=== PATIENT | female | born 1965 | race Caucasian/White ===

== ENCOUNTER 2021-11-24 05:36 | Emergency (ER) | payer MEDICAID, SELFPAY ==
[2021-11-24 05:54] VITALS: BMI 24.2
--- NOTE | 2021-11-24 05:55 | CT_ITS ---
FINAL REPORT TECHNIQUE: Thin section axial images were obtained through the abdomen after intravenous contrast. Reconstruction images were obtained from the axial data. Exam was performed using dose reduction techniques. This study was performed with techniques to keep radiation doses as low as reasonably achievable (ALARA). Individualized dose reduction techniques using automated exposure control or adjustment of mA and/or kV according to the patient's size were employed. CLINICAL HISTORY: abd pain, n/v FINDINGS: The lung bases are clear. There is mild fatty infiltration of the liver. The gallbladder is present. There is subtle abnormal attenuation surrounding the body of the pancreas, mild pancreatitis is not excluded. The adrenals and pancreas are unremarkable. There is a nonobstructing left renal stone. No obstructing renal or ureteral stone is identified. There is no small bowel obstruction. There is no abdominal lymphadenopathy or ascites. The patient is status post hysterectomy. The pelvic portions of the GI tract, including the appendix, are without acute abnormality. There is no pelvic lymphadenopathy or ascites. No acute osseous abnormalities identified. IMPRESSION: Fatty liver. Possible mild pancreatitis. Recommend correlation with pancreatic laboratory studies. Nonobstructing left renal stone. Reviewed, Interpreted and Dictated by Maria Fernanda Buckley MD Transcribed by Kitty Lyons Authenticated and [facility]
[2021-11-24 06:03] VITALS: BP 113/61; PULSE 89; RESP 18; TEMP 36.9; O2SAT 100; BMI 22.7
[2021-11-24 06:08] LABS: Microscopic, Urine URINE MICROSCOPIC (MICROSCOPIC)
[2021-11-24 06:09] LABS: Appearance,Urine CLEAR (Clear); Bilirubin,Urine Negative (Negative); Blood, Urine 3+ (Negative); Color,Urine YELLOW (Yellow); Glucose,Urine (UA) TRACE (Negative); Ketones,Urine Negative (Negative); Leukocyte Esterase,Urine TRACE (Negative); Nitrate,Urine Negative (Negative); Protein,Urine Negative (Negative); Urobilinogen,Urine 0.2 EU/dl (0.2)
[2021-11-24 06:10] VITALS: PULSE 78; RESP 16; TEMP 36.8
--- NOTE | 2021-11-24 06:12 | HMH.EDNVD ---
ED Disposition Clinical Impression: GERD (gastroesophageal reflux disease) Qualifiers: Esophagitis presence: esophagitis presence not specified Qualified Code(s): K21.9 - Gastro-esophageal reflux disease without esophagitis Disposition: Home, Self-Care Condition on Discharge: Good Instructions: DI for Gastroesophageal Reflux Disease (GERD) Additional Instructions: call pcp for follow up and adjust meds Prescriptions: Sucralfate [Carafate 1gm/10mL Susp] 10 ml PO ACHS 10 Days #400 ml Transmission Status: Pending to [facility] Referrals: Molly Mason APRN [Primary Care Provider] - - Critical Care Critical Care Time: No Attestation: On , the high probability of a clinically significant, sudden or life threatening deterioration of the following system(s) required my full and direct attention, intervention and personal management. The time I documented below is in addition to time spent performing reported procedures but includes the following listed in this critical care notation. Medical Decision Making - Medical Records Medical records reviewed: Yes: I reviewed the patient's medical records. - Brian Inquiry Pt receiving controlled substance: No Vital Signs: 11/24/21 06:03 11/24/21 06:10 11/24/21 06:59 Temperature 98.5 F 98.3 F Temperature Source Oral Pulse Rate 78 70 Pulse Rate [Left] 89 Respiratory Rate 18 16 16 Blood Pressure 103/60 L Blood Pressure [Right Arm] 113/61 Blood Pressure Mean [Right Arm] 78 Blood Pressure Source [Right Arm] Manual Cuff/ Auscultation 02 Sat by Pulse Oximetry 100 96 Oxygen Delivery Method Room Air Room Air - Lab Data Lab results reviewed: Yes: I reviewed the patient's lab results. Lab Results 11/24/21 05:54: Urine Color Yellow, Urine Appearance Clear, Urine pH 6.0, Ur Specific [place] 1.020, Urine Protein Negative, Urine Glucose (UA) Trace, Urine Ketones Negative, Urine Blood 3+, Urine Nitrate Negative, Urine Bilirubin Negative, Urine Urobilinogen 0.2, Ur Leukocyte Esterase Trace, Urine RBC 5-10, Urine WBC 3-5, Ur Squamous Epith Cells Occasional, Calcium Oxalate Crystal 1+, Urine Bacteria Trace 11/24/21 05:55: WBC 6.7, RBC 4.65, Hgb 13.6, Hct 38.5, MCV 82.8, MCH 29.1, MCHC 35.2, RDW 14.0, Plt Count 152, MPV 10.3, Neut % (Auto) 62.4, Lymph % (Auto) 29.7, [place] % (Auto) 6.5, Eos % (Auto) 1.2, Baso % (Auto) 0.3, Neut # (Auto) 4.2, Lymph # (Auto) 2.0, [place] # (Auto) 0.4, Eos # (Auto) 0.1, Baso # (Auto) 0.0 11/24/21 05:55: Sodium 138, Potassium 3.4 L, Chloride 102, Carbon Dioxide 28, Anion Gap 11.4, BUN 15, Creatinine 0.70, Estimated Creat Clear 93, Estimated GFR 87, Est GFR ( Amer) 106, Glucose 209 H, Calcium 9.6, Total Bilirubin < 0.1 L, AST 31, ALT 26, Alkaline Phosphatase 101, Troponin I < 0.01, Total Protein 7.4, Albumin 4.2, Globulin 3.2, Albumin/Globulin Ratio 1.3, Amylase 68, Lipase 225, Acetone Level None detected Result diagrams: 11/24/21 05:55 11/24/21 05:55 Orders (Tests/Meds): ED MEDICATIONS Generic Name Dose Route Start Last Admin Trade Name Freq PRN Reason Stop Dose Admin Sodium Chloride 8 ml 11/24/21 05:55 Sodium Chloride 0.9% 10ml Vial IV 12/24/21 05:54 NEEDED PRN dilute pepcid Discontinued Medications Generic Name Dose Route Start Last Admin Trade Name Freq PRN Reason Stop Dose Admin Famotidine 20 mg 11/24/21 05:55 11/24/21 06:19 Famotidine 20mg/2ml Vial IV 11/24/21 05:56 20 mg ONCE ONE Administration Sodium Chloride 1,000 mls @ 999 mls/hr 11/24/21 06:00 11/24/21 06:19 Sod Chlor 0.9% 1000ml Bag IV 11/24/21 07:00 999 mls/hr .Q1H1M AJ Administration Iopamidol 75 ml 11/24/21 06:59 11/24/21 07:00 Iopamidol-370 (76%);100ml Bottle IV 11/24/21 07:00 75 ml ONCE ONE Administration Metoclopramide HCl 10 mg 11/24/21 05:55 11/24/21 06:19 Metoclopramide Hcl 10mg/2ml Vial IVP 11/24/21 05:56 10 mg ONCE ONE Administration Ondansetron HCl 4 mg 11/24/21
[2021-11-24 06:16] LABS: Basophils % 0.3 % (0.1-2.0); Eosinophils # 0.1 K/mm3 (0.0-0.4); Eosinophils % 1.2 % (0.1-12.0); Hematocrit 38.5 % (37.0-47.0); Hemoglobin 13.6 g/dL (12.2-16.2); Lymphocytes % 29.7 % (10-50); Mean Corpuscular HGB Conc 35.2 g/dL (31.8-35.4); Mean Corpuscular Hemoglobin 29.1 pg (27.0-31.2); Mean Corpuscular Volume 82.8 fl (81-99); Mean Platelet Volume 10.3 fl (7.4-10.4); Monocytes # 0.4 K/mm3 (0.1-1.0); Monocytes % 6.5 % (1.7-9.3); Neutrophils # 4.2 K/mm3 (1.8-7.8); Neutrophils % 62.4 % (37.0-80.0); Platelet Count 152 K/mm3 (142-424); Red Blood Count 4.65 M/mm3 (4.20-5.40); White Blood Count 6.7 K/mm3 (4.8-10.8)
[2021-11-24 06:22] LABS: Alanine Aminotransferase 26 U/L (12-78); Albumin Level 4.2 g/dl (3.5-5.0); Albumin/Globulin Ratio 1.3 (1.1-1.8); Alkaline Phosphatase 101 U/L (38-126); Amylase 68 U/L (30-110); Anion Gap 11.4 mEq/L (5-15); Aspartate Amino Transferase 31 U/L (14-36); Blood Urea Nitrogen 15 mg/dl (7-17); Calcium 9.6 mg/dl (8.4-10.2); Carbon Dioxide 28 mmol/L (22.0-30.0); Chloride 102 mmol/L (98-107); Creatinine Clearance Estimated 93 mL/min (50-200); Estimated Glomerular Filt Rate 87 ml/min (>60); GFR (African American) 106 ML/MIN (>60); Globulin 3.2 g/dL (1.3-3.2); Glucose 209 mg/dl (74-100); Lipase 225 U/L (23-300); Potassium 3.4 mmoL/L (3.5-5.1); Sodium 138 mmol/L (136-145); Total Protein,Serum 7.4 g/dl (6.3-8.2)
[2021-11-24 06:31] LABS: Bilirubin,Total < 0.1 mg/dl (0.2-1.3)
[2021-11-24 06:44] LABS: Troponin I < 0.01 ng/ml (0.00-0.034)
[2021-11-24 06:58] LABS: Bacteria,Urine Trace /lpf; Calcium Oxalate Crystals,Urine 1+ /lpf; Squamous Epithelial Cell,Urine Occasional #/hpf (0-5)
[2021-11-24 06:59] VITALS: BP 103/60; PULSE 70; RESP 16; O2SAT 96
--- NOTE | 2021-11-24 07:00 | PC.NURSE ---
pt back from ct
[2021-11-24 07:02] VITALS: BP 103/58; PULSE 69; O2SAT 98
--- NOTE | 2021-11-24 07:18 | PC.NURSE ---
received report from mabel
--- NOTE | 2021-11-24 07:22 | PC.NURSE ---
pt and SO updated on plan of care
[2021-11-24 07:32] LABS: Acetone, Serum (Rapid) None Detected (None Detect)
[2021-11-24 07:39] VITALS: BP 81/43; PULSE 88; O2SAT 96
--- NOTE | 2021-11-24 07:53 | PC.NURSE ---
in to speak with pt about results. pt to receive the rest of fluids and to be d/c.
--- NOTE | 2021-11-24 08:09 | PC.NURSE ---
pt receiving iv bolus ns infusing with no complications
[2021-11-24 08:27] VITALS: BP 112/72; PULSE 78; RESP 16; TEMP 36.6; O2SAT 98
== END 2021-11-24 08:28 | disposition home or self-care (01) ==
PROVIDERS: Emergency Provider Emergency Medicine; PCP Nurse Practitioner Family
DX: K21.9 Gastro-esophageal reflux disease without esophagitis (principal)
CPT/HCPCS: 74177; 80053; 81001; 82009; 82150; 83690; 84484; 85025; 96365; 96366; 96375; 96376; 99284; J2405; Q9967

== ENCOUNTER → 2021-11-30 08:08 | Outpatient (CLI) | payer MEDICAID, SELFPAY ==
--- NOTE | 2021-11-30 08:16 | US_ITS ---
FINAL REPORT CLINICAL HISTORY: .bloating-- hx of uterus removed FINDINGS: Transvaginal and transabdominal sonographic images of the pelvis were obtained. The uterus is absent. Neither ovary is identified. Bowel is noted. IMPRESSION: Uterus and ovaries not identified. Reviewed, Interpreted and Dictated by Bonilla Knox III, MD Transcribed by Rahul Fernandes Authenticated and [facility]
--- NOTE | 2021-11-30 08:16 | US_ITS ---
FINAL REPORT CLINICAL HISTORY: EPIGASTRIC PAIN FINDINGS: Sonographic images of the abdomen were obtained. The liver has an unremarkable appearance with normal echogenicity. The gallbladder has an unremarkable appearance without evidence of gallstones. There is no evidence of biliary ductal dilatation. The common hepatic duct measures 5 mm, which is within normal limits. Limited images of the pancreas are unremarkable. The spleen size is normal. The right kidney measures 12.5 cm in length. The left kidney measures 11.0 cm in length. There is normal renal echogenicity. There is no evidence of hydronephrosis. The aorta has an unremarkable appearance. Limited images of the inferior vena cava are unremarkable. IMPRESSION: Unremarkable abdominal ultrasound with no acute abnormality identified. Reviewed, Interpreted and Dictated by Bonilla Knox III, MD Transcribed by Rahul Fernandes Authenticated and [facility]
== END ==
PROVIDERS: PCP Nurse Practitioner Family; Visit Provider Nurse Practitioner Family
DX: R10.13 Epigastric pain (principal)
CPT/HCPCS: 76700; 76830

== ENCOUNTER → 2021-12-23 09:59 | Outpatient (CLI) | payer MEDICAID, SELFPAY ==
--- NOTE | 2021-12-23 10:05 | NM_ITS ---
FINAL REPORT TECHNIQUE: The patient was injected with 8.56 mCi of technetium 99m Choletec and the patient ingested Ensure. Images of the abdomen were obtained for one hour. CLINICAL HISTORY: EPIGASTRIC PAIN 10:15AM 8.56 MCI TC CHOLETEC ENSURE FINDINGS: Hepatic uptake is normal. There is gallbladder and small bowel activity at 30 minutes. Ejection fraction after Ensure was calculated as 78%. IMPRESSION: Normal hepatobiliary scan. Normal ejection fraction. Reviewed, Interpreted and Dictated by Maria Fernanda Buckley MD Transcribed by Chelsi Monahan Authenticated and [facility]
--- NOTE | 2021-12-23 10:16 | HMH.ITSHM ---
Current Home Medications as stated by this patient Quynh Peña or labor representative. []SUCRALFATE
== END ==
PROVIDERS: PCP Nurse Practitioner Family; Visit Provider Nurse Practitioner Family
DX: R10.13 Epigastric pain (principal)
CPT/HCPCS: 78226; A9537

== ENCOUNTER 2022-02-23 18:04 | Emergency (ER) | payer MEDICAID, SELFPAY ==
[2022-02-23 18:05] VITALS: BP 130/83; PULSE 85; RESP 18; TEMP 37.1; O2SAT 97; BMI 24.7
--- NOTE | 2022-02-23 18:19 | HMH.EDGENADL ---
Discharge Plan Disposition Patient Disposition: Home, Self-Care Condition: Fair Prescriptions Prescriptions: New ondansetron 4 mg tablet,disintegrating 4 mg PO Q6H PRN (Reason: nausea and vomiting) Qty: 10 0RF tamsulosin [Flomax] 0.4 mg capsule 0.4 mg PO DAILY Qty: 5 0RF ibuprofen 600 mg tablet 600 mg PO Q8H PRN (Reason: pain) Qty: 14 0RF No Action sucralfate 1 GM/10 ML suspension 10 ml PO ACHS 10 Days Qty: 400 0RF Referrals Follow up/Referrals: Molly Mason APRN [Primary Care Provider] - See instructions Activity Restrictions/Add. Instructions Additional Instructions/Restrictions: You have been evaluated for flank pain. Work-up today indicates that you recently passed a kidney stone. Please continue antibiotics as prescribed by your primary care doctor. We sent a urine culture today, please follow-up for antibiotic modification. Take ibuprofen for pain. Zofran for nausea. Follow-up with your primary care doctor in 1 to 2 days for symptom recheck. Return to the emergency department at once for any new or worsening symptoms, pain, fever, vomiting, other concerns. Clinical Impressions Clinical Impression: Hematuria, UTI (urinary tract infection) Instructions Patient Instructions: DI for Urinary Tract Infection (UTI), DI for Kidney Stones Discharge ED Provider: Mae Cerda Adult HPI General Chief complaint: Urogenital-Female Stated complaint: back and side pain blood in urine Time Seen by Provider: 02/23/22 18:06 History of Present Illness HPI narrative: 56-year-old female presenting to the emergency department with flank pain and difficulty urinating. She started getting treated for urinary tract infection about a week and a half ago. She completed 1 antibiotic, was transition to a different antibiotic. Over the last 2 days she has had worsening pain, located on the right flank, low back. Described as sharp, stabbing, intermittent. Nothing seems to make it better or worse. She has had a kidney stone before, this feels similar. She denies fevers, chills, nausea, vomiting. No medications prior to arrival. Related Data Previous Rx's Medication Instructions Recorded sucralfate 100 mg/mL oral 10 ml PO ACHS 10 days #400 mL 11/24/21 suspension ibuprofen 600 mg tablet 600 mg PO Q8H PRN pain #14 tabs 02/23/22 ondansetron 4 mg disintegrating 4 mg PO Q6H PRN nausea and 02/23/22 tablet vomiting #10 tabs tamsulosin 0.4 mg capsule (Flomax) 0.4 mg PO DAILY #5 caps 02/23/22 Allergies Allergy/AdvReac Type Severity Reaction Status Date / Time No Known Allergies Allergy Verified 11/24/21 05:54 PFSH PFSH Medical History (Updated 02/23/22 @ 19:46 by Mae Cerda DO) Angina pectoris CHF (congestive heart failure) Diabetes Surgical History (Updated 02/23/22 @ 18:40 by Roxana Steel RN) H/O: hysterectomy Social History (Updated 02/23/22 @ 18:40 by Roxana Steel RN) Smoking Status: Current every day smoker alcohol intake: current current occupational status: employed Travel in the last 8 weeks: None ROS Obtained: Yes All systems reviewed & no additional complaints except as documented Constitutional Constitutional: Denies body ache, Denies chills, Denies fever(s) and Denies headache(s) ENT Ears, Nose, Mouth, and Throat: Denies headache(s) and Denies neck pain Cardiovascular Cardiovascular: Denies chest pain and Denies dyspnea Respiratory Respiratory: Denies cough and Denies dyspnea Gastrointestinal Gastrointestingal: Denies nausea or vomiting Genitourinary Female Genitourinary: Reports dysuria and Reports flank pain Musculoskeletal Musculoskeletal: Reports back pain and Denies neck pain Neurologic Neurologic: Denies headache(s) Physical Exam General General appearance: alert and in no apparent distress Head Head exam: atraumatic and normocephalic ENT ENT exam: Present normal exam and mucous membranes moist Respiratory Respiratory
--- NOTE | 2022-02-23 18:20 | CT_ITS ---
PROCEDURE INFORMATION: Exam: CT Abdomen And Pelvis Without Contrast Exam date and time: 02/23/2022 6:37 PM Age: 56 years old Clinical indication: Abdominal pain; Additional info: Flank pain, kindey stone TECHNIQUE: Imaging protocol: Computed tomography of the abdomen and pelvis without contrast. Radiation optimization: All CT scans at this facility use at least one of these dose optimization techniques: automated exposure control; mA and/or kV adjustment per patient size (includes targeted exams where dose is matched to clinical indication); or iterative reconstruction. COMPARISON: CT ABDOMEN PELVIS W CON 11/24/2021 6:48 AM FINDINGS: Tubes, catheters and devices: None noted. Lungs: Lung bases appear clear. Heart: No significant coronary calcifications. No cardiomegaly. No significant pericardial effusion. Liver: Normal. No mass. Gallbladder and bile ducts: Normal. No calcified stones. No ductal dilation. Pancreas: Normal. No ductal dilation. Spleen: Normal. No splenomegaly. Adrenal glands: Normal. No mass. Kidneys and ureters: Bilateral nonobstructive renal caliceal calcifications. No hydronephrosis. Stomach and bowel: Unremarkable. No obstruction. No mucosal thickening. Appendix: No evidence of appendicitis. Intraperitoneal space: Unremarkable. No free air. No significant fluid collection. Retroperitoneal space: No significant retroperitoneal inflammatory changes are noted. Vasculature: Unremarkable. No abdominal aortic aneurysm. Lymph nodes: Unremarkable. No enlarged lymph nodes. Urinary bladder: Unremarkable as visualized. Reproductive: Hysterectomy. Bilateral tubal ligation. Bones/joints: Unremarkable. No acute fracture. Soft tissues: Unremarkable. IMPRESSION: 1. No CT evidence of nephroureterolithiasis. 2. Hysterectomy. Bilateral tubal ligation.
--- NOTE | 2022-02-23 18:41 | PC.NURSE ---
PT TO CT AT THIS TIME VIA WC
[2022-02-23 18:46] LABS: Microscopic, Urine URINE MICROSCOPIC (MICROSCOPIC)
[2022-02-23 18:55] LABS: Appearance,Urine CLEAR (Clear); Bilirubin,Urine Negative (Negative); Blood, Urine 1+ (Negative); Color,Urine YELLOW (Yellow); Glucose,Urine (UA) Negative (Negative); Ketones,Urine Negative (Negative); Leukocyte Esterase,Urine TRACE (Negative); Nitrate,Urine Negative (Negative); PH,Urine 5.5 (5.0-8.5); Protein,Urine Negative (Negative); Specific Gravity, Urine 1.015 (1.005-1.030); Urobilinogen,Urine 0.2 EU/dl (0.2)
[2022-02-23 18:59] LABS: Basophils # 0.1 K/mm3 (0-0.2); Basophils % 1.4 % (0.1-2.0); Eosinophils # 0.1 K/mm3 (0.0-0.4); Eosinophils % 1.6 % (0.1-12.0); Hematocrit 43.7 % (37.0-47.0); Lymphocytes % 31.2 % (10-50); Mean Corpuscular HGB Conc 34.4 g/dL (31.8-35.4); Mean Corpuscular Hemoglobin 29.9 pg (27.0-31.2); Mean Corpuscular Volume 86.9 fl (81-99); Mean Platelet Volume 10.6 fl (7.4-10.4); Monocytes # 0.5 K/mm3 (0.1-1.0); Monocytes % 6.9 % (1.7-9.3); Neutrophils # 3.8 K/mm3 (1.8-7.8); Neutrophils % 58.9 % (37.0-80.0); Platelet Count 184 K/mm3 (142-424); Red Blood Count 5.03 M/mm3 (4.20-5.40); White Blood Count 6.5 K/mm3 (4.8-10.8)
[2022-02-23 19:00] LABS: Alanine Aminotransferase 26 U/L (12-78); Albumin Level 4.3 g/dl (3.5-5.0); Albumin/Globulin Ratio 1.4 (1.1-1.8); Alkaline Phosphatase 97 U/L (38-126); Anion Gap 16.4 mEq/L (5-15); Aspartate Amino Transferase 31 U/L (14-36); Bilirubin,Total 0.3 mg/dl (0.2-1.3); Blood Urea Nitrogen 19 mg/dl (7-17); Carbon Dioxide 27 mmol/L (22.0-30.0); Chloride 98 mmol/L (98-107); Creatinine Clearance Estimated 88 mL/min (50-200); Estimated Glomerular Filt Rate 75 ml/min (>60); GFR (African American) 90 ML/MIN (>60); Glucose 196 mg/dl (74-100); Potassium 3.4 mmoL/L (3.5-5.1); Sodium 138 mmol/L (136-145); Total Protein,Serum 7.3 g/dl (6.3-8.2)
[2022-02-23 19:08] LABS: Bacteria,Urine Trace /lpf; Calcium Oxalate Crystals,Urine 1+ /lpf; Squamous Epithelial Cell,Urine Occasional #/hpf (0-5)
[2022-02-23 20:26] VITALS: BP 134/78; PULSE 81; RESP 18; TEMP 37.1; O2SAT 97
== END 2022-02-23 20:30 | disposition home or self-care (01) ==
PROVIDERS: Emergency Provider Emergency Medicine; PCP Nurse Practitioner Family
DX: N39.0 Urinary tract infection, site not specified (principal); Z87.442 Personal history of urinary calculi; E11.9 Type 2 diabetes mellitus without complications; Z72.0 Tobacco use
CPT/HCPCS: 74176; 80053; 81001; 85025; 96374; 99284